=== PATIENT | female | born 1945 | race Caucasian/White ===

== ENCOUNTER 2017-03-10 07:27 | Day surgery (SDC) | payer OTHER ==
[2017-03-10] MEDS: CYCLOGYL 2% OPTH OP PRN ×3 (08:15→08:25)
[2017-03-10] MEDS ORDERED: LIDOCAINE 1% 20 ML MDV ID ONE (08:15)
[2017-03-10] MEDS ORDERED: LIDOCAINE 1%/PHENYLEPHRINE 1.5% BSS (SURGERY) IO ONE (08:53)
[2017-03-10] MEDS ORDERED: [UNRECOGNIZED DRUG - OTHER] IO ONE (08:53)
[2017-03-10] MEDS ORDERED: OMIDRIA 1-0.3% VIAL IO ONE (08:53)
[2017-03-10] MEDS ORDERED: SUBLIMAZE ONE (09:00)
[2017-03-10] MEDS ORDERED: VERSED ONE (09:00)
[2017-03-10] MEDS ORDERED: DIPRIVAN 20 ML VIAL IVP ONE (09:00)
[2017-03-10] MEDS ORDERED: BETADINE OPTH PREP OP PRN (11:00)
[2017-03-10] MEDS ORDERED: TETRACAINE 0.5% UNIT-DOSE OP PRN (11:00)
[2017-03-10] MEDS ORDERED: ZOFRAN 4 MG/2 ML IVP ONE (11:00)
[2017-03-10] MEDS ORDERED: NIRAVAM ODT (SURGERY) PO PRN (11:00)
[2017-03-10 15:03] VITALS: BP 126/76; TEMP 98.2
== END 2017-03-10 09:20 | disposition home or self-care (01) ==
LOC: SURG 07:27
PROVIDERS: ATTEND Ophthalmology
DX: H25.11 Age-related nuclear cataract, right eye (principal); H52.201 Unspecified astigmatism, right eye

== ENCOUNTER 2018-03-30 08:14 | Day surgery (SDC) ==
[2018-03-30] MEDS: BETADINE OPTH PREP OP PRN ×2 (08:30→09:05)
[2018-03-30] MEDS: TETRACAINE 0.5% UNIT-DOSE OP PRN ×2 (08:30→09:05)
[2018-03-30] MEDS: CYCLOGYL 2% OPTH OP PRN ×3 (08:31→08:41)
[2018-03-30] MEDS ORDERED: LIDOCAINE 1% 20 ML MDV ID STA (08:37)
[2018-03-30] MEDS ORDERED: BRIMONIDINE TARTRATE 0.2% OPTH SOL OP PRN (08:37)
[2018-03-30] MEDS ORDERED: ZOFRAN 4 MG/2 ML IVP ONE (08:37)
[2018-03-30 08:46] VITALS: TEMP 98.5
[2018-03-30] MEDS: DEX-MOXI-KETOR OPTH INJ 1/0.5/0.4 MG/ML IO ONE ×2 (09:11→09:20)
[2018-03-30] MEDS: BSS WITH EPINEPHRINE OP ONE ×2 (09:11→09:20)
[2018-03-30] MEDS: LIDOCAINE 1%/PHENYLEPHRINE 1.5% BSS (SURGERY) INTRAOCULA ONE ×2 (09:11→09:20)
[2018-03-30] MEDS ORDERED: VERSED ONE (09:15)
[2018-03-30] MEDS ORDERED: ZOFRAN 4 MG/2 ML ONE (09:15)
[2018-03-31 10:48] VITALS: BP 129/66
== END 2018-03-30 10:35 | disposition home or self-care (01) ==
LOC: SURG 08:14
PROVIDERS: ATTEND Ophthalmology
DX: H25.12 Age-related nuclear cataract, left eye (principal)